=== PATIENT | male | born 1965 ===

== ENCOUNTER → 2024-04-20 | Outpatient (REF) | payer BC ==
[2024-04-21 00:42] LABS: Trichomonas vaginalis (AMP) NOT DETECTED (NEGATIVE)
[2024-04-21 01:06] LABS: GC DNA AMPLIFICATION NEGATIVE (NEGATIVE)
== END ==
LOC: M LAB REF 18:47
PROVIDERS: ATTEND Physician Assistant
DX: R30.0 Dysuria (principal)